=== PATIENT | male | born 1945 | race African-American/Black ===

== ENCOUNTER 2016-10-19 12:57 | Emergency (ER) | payer OTHER ==
[~2016-10-19] VITALS: Ht 170.2 cm; Wt 86.2 kg
[2016-10-19 13:09] LABS: HCO3 ABG 17 mmol/L (21-28); PCO2 ABG 34 mmHg (35-46); PH ABG 7.32 (7.35-7.45); PO2 ABG 80 mmHg (65-108); SAT O2 ABG 94 % (92-99)
--- NOTE | 2016-10-19 13:09 | PHYS DOC ---
Adult General Chief Complaint Chief Complaint: SEIZURE HPI HPI Patient is a 71 year old M who presents with new onset seizure. Patient has known lung cancer stage III and is currently undergoing treatment. Family called because he started having a seizure with no known history of seizures. EMS gave 10 mg of medazepam which stopped the seizure. Patient is post ictal in the emergency room on nonrebreather. Patient has no signs of trauma. No family is bedside. Review of Systems Review of Systems Unable to obtain review of systems secondary to patient's critical condition Current Medications Current Medications Current Medications Medications (Trade) Dose Ordered Sig/Yadi Start Time Stop Time Status Last Admin Dose Admin Propofol 50 ml @ As Directed STK-MED ONCE 10/19/16 13:58 10/19/16 13:59 DC Allergies Allergies Allergies Coded Allergies Type Severity Reaction Last Updated Verified No Known Drug Allergies 10/19/16 No Physical Exam Physical Exam GEN.: Unresponsive, GCS of 8 HEENT: Head is normocephalic, atraumatic NECK: Supple. LUNGS: CTAB. HEART: RRR, S1, S2 present. Peripheral pulses intact ABDOMEN: Soft, nontender. Positive bowel sounds. EXTREMITIES: Without any cyanosis. NEUROLOGIC: GCS 8 (E=1, V=2, M=5) SKIN: No ulcerations Current Patient Data Vital Signs Vital Signs Date Time Temp Pulse Resp B/P (MAP) Pulse Ox O2 Delivery O2 Flow Rate FiO2 10/19/16 12:57 100.0 118 24 131/84 (100) 100 NonRebreather Mask 15.0 100.0 Lab Values Laboratory Tests Test 10/19/16 13:00 10/19/16 13:05 10/19/16 13:07 White Blood Count 13.8 x10^3/uL (4.0-11.0) H Red Blood Count 4.35 x10^6/uL (4.30-5.70) Hemoglobin 14.2 g/dL (13.0-17.5) Hematocrit 42.2 % (39.0-53.0) Mean Corpuscular Volume 97 fL (79-100) Mean Corpuscular Hemoglobin 33 pg (25-35) Mean Corpuscular Hemoglobin Concent 34 g/dL (31-37) Red Cell Distribution Width 16.0 % (11.5-14.5) H Platelet Count 378 x10^3/uL (140-400) Neutrophils (%) (Auto) 90 % (31-73) H Lymphocytes (%) (Auto) 6 % (24-48) L Monocytes (%) (Auto) 4 % (0-9) Eosinophils (%) (Auto) 0 % (0-3) Basophils (%) (Auto) 1 % (0-3) Neutrophils # (Auto) 12.4 x10^3uL (1.8-7.7) H Lymphocytes # (Auto) 0.8 x10^3/uL (1.0-4.8) L Monocytes # (Auto) 0.6 x10^3/uL (0.0-1.1) Eosinophils # (Auto) 0.0 x10^3/uL (0.0-0.7) Basophils # (Auto) 0.1 x10^3/uL (0.0-0.2) Segmented Neutrophils % 71 % (35-66) H Band Neutrophils % 12 % (0-9) H Lymphocytes % 9 % (24-48) L Monocytes % 8 % (0-10) Toxic Granulation Slight Platelet Estimate Adequate (ADEQUATE) Sodium Level 144 mmol/L (136-145) Potassium Level 3.3 mmol/L (3.5-5.1) L Chloride Level 103 mmol/L (98-107) Carbon Dioxide Level 19 mmol/L (21-32) L Anion Gap 22 (6-14) H Blood Urea Nitrogen 16 mg/dL (8-26) Creatinine 1.6 mg/dL (0.7-1.3) H Estimated GFR (Cockcroft-Gault) 52.1 BUN/Creatinine Ratio 10 (6-20) Glucose Level 201 mg/dL (70-99) H Glucose (Fingerstick) 190 mg/dL (70-99) H Lactic Acid Level 9.8 mmol/L (0.4-2.0) *H Calcium Level 9.0 mg/dL (8.5-10.1) Total Bilirubin 0.5 mg/dL (0.2-1.0) Aspartate Amino Transferase (AST) 23 U/L (15-37) Alanine Aminotransferase (ALT) 25 U/L (16-63) Alkaline Phosphatase 67 U/L (46-116) Troponin I Quantitative 0.188 ng/mL (0.000-0.055) Total Protein 7.8 g/dL (6.4-8.2) Albumin 4.2 g/dL (3.4-5.0) Albumin/Globulin Ratio 1.2 (1.0-1.7) O2 Saturation 94 % (92-99) Arterial Blood pH 7.32 (7.35-7.45) L Arterial Blood pCO2 at Patient Temp 34 mmHg (35-46) L Arterial Blood pO2 at Patient Temp 80 mmHg (65-108) Arterial Blood HCO3 17 mmol/L (21-28) L Arterial Blood Base Excess -8 mmol/L (-3-3) L FiO2 100 Urine Collection Type Unknown Urine Color Yellow Urine Clarity Clear Urine pH 5.5 Urine Specific [place] 1.015 Urine Protein 100 mg/dL (NEG-TRACE) Urine Glucose (UA) 100 mg/dL (NEG) Urine Ketones (Stick) Negative mg/dL (NEG) Urine Blood Moderate (NEG) Urine Nitrite Negative (NEG) Urine Bilirubin Negative (NEG) Urine Urobilinogen Dipstick 0.2 mg/dL (0.2 mg/dL) Urine Leukocyte Esterase Negative (NEG) Urine RBC 1-2 /HPF (0-2) Urine WBC 0 /HPF (0-4) Urine Squamous Epithelial Cells Mod /LPF Urine Transitional Epithelial Cells Occ /LPF Urine Bacteria 0 /HPF (0-FEW) Urine Hyaline Casts Few /HPF Urine Mucus Mod /LPF Laboratory Tests 10/19/16 13:00 Laboratory Tests 10/19/16 13:00 EKG EKG 1308: EKG shows sinus tach rate of 111 no STEMI] Radiology/Procedures Radiology/Procedures CT head: Impression: 1. Small, 0.9 x 0.9, hyperdense structure in the left frontotemporal lobe with marked adjacent vasogenic edema which results in left cerebral convexity sulcal effacement and left to right midline shift measuring 6 mm. Given the extensive vasogenic edema, there is high concern for primary metastatic disease patient's known lung carcinoma. 2. Additional patchy nonspecific white matter disease may be related to chronic small vessel ischemic disease. If further evaluation is clinically indicated, MRI brain with contrast can be obtained. These results were discussed with Dr. Jo of the emergency service by telephone at 1:45 PM 10/19/[address] Heriberto Geiger. CXR: Fullness of right pulmonary hilum. Findings may represent adenopathy or central right hilar malignancy Indication: Respiratory failure Consent: Unable to give consent due to emergent nature. Medications Used: see nursing note Procedure: The patient was placed in the appropriate position. Intubation was performed cords were visualized size 8.0 endotracheal tube. ET tube was secured by respiratory therapist.. Initial confirmation of placement included bilateral breath sounds, tube fogging, adequate chest rise, adequate pulse oximetry reading. A chest x-ray to verify correct placement of the tube showed appropriate tube position. The patient tolerated the procedure well. Complications: none. Course & Med Decision Making Course & Med Decision Making Pertinent Labs and Imaging studies reviewed. (See chart for details) ED course: Patient was seen and examined upon arrival emergency room sepsis workup was ordered along with a CT scan of the head 1345: CT report called back to the ER 1350: Discussed CT findings with the and daughter, discuss CODE STATUS at this time patient a full code. Family would like the patient intubated and transferred to where his oncologist and his care has been. 1400: Patient was intubated 1407: Discussed CC/HP/PMH with transfer center will call back 1410: Discussed CC/HP/PMH with transfer center and Dr. Rodrigues will accept and recommends admit 1415: Plan discussed with family. 1420: I do not believe the patient is septic despite the lactic acid of 9 and believe the elevated lactic acid is secondary to the patient's seizure that lasted approximately 20 minutes. At this time I do not see any signs of an active infection warranting antibiotics. Critical care time was 35 minutes exclusive of procedures.[] [] Dragon Disclaimer Dragon Disclaimer This electronic medical record was generated, in whole or in part, using a voice recognition dictation system. Departure Departure Impression: Primary Impression: Metastatic cancer to brain Additional Impressions: Seizure Lung cancer Coma Disposition: TRANSFER [facility] ( Dr. Rodrigues accepting) Condition: GUARDED Problem Qualifiers SAUL JO DO Oct 19, 2016 13:09
[2016-10-19 13:11] LABS: FIO2 ABG 100
[2016-10-19 13:17] LABS: BASO # 0.1 x10^3/uL (0.0-0.2); BASO % 1 % (0-3); EOS % 0 % (0-3); HEMATOCRIT 42.2 % (39.0-53.0); HEMOGLOBIN 14.2 g/dL (13.0-17.5); LYMPH # 0.8 x10^3/uL (1.0-4.8); LYMPH % 6 % (24-48); MEAN CORPUSCULAR HEMOGLOBIN 33 pg (25-35); MEAN CORPUSCULAR HGB CONC 34 g/dL (31-37); MEAN CORPUSCULAR VOLUME 97 fL (79-100); MONO % 4 % (0-9); NEUT % 90 % (31-73); PLATELET COUNT 378 x10^3/uL (140-400); RED BLOOD COUNT 4.35 x10^6/uL (4.30-5.70); WHITE BLOOD COUNT 13.8 x10^3/uL (4.0-11.0)
[2016-10-19 13:21] LABS: BILIRUBIN,URINE NEGATIVE (NEG); GLUCOSE,URINE 100 mg/dL (NEG); NITRITE,URINE NEGATIVE (NEG); PH,URINE 5.5; PROTEIN,URINE 100 mg/dL (NEG-TRACE); UROBILINOGEN,URINE 0.2 mg/dL (0.2 mg/dL)
--- NOTE | 2016-10-19 13:23 | EKG ---
[facility] [address] [place] [address] Test Date: 2016-10-19 Test Time: 13:08:21 Pat Name: ALENA VARGAS Department: Room: Gender: M Sales Support Technician: : 1945 Requested By: SAUL JO Order Number: [id number] Reading MD: Raul Rhodes Measurements Intervals Petroleum Rate: 111 P: -87 OR: 140 QRS: -66 QRSD: 86 T: 65 QT: 344 QTc: 471 Interpretive Statements SINUS TACHYCARDIA LAFB RBBB Electronically Signed On 10-20-2016 12:03:57 CDT by Raul Rhodes
[2016-10-19 13:26] LABS: CREATININE 1.6 mg/dL (0.7-1.3); GFR 52.1; POTASSIUM 3.3 mmol/L (3.5-5.1)
[2016-10-19 13:31] LABS: ALBUMIN 4.2 g/dL (3.4-5.0); ALBUMIN/GLOBULIN RATIO 1.2 (1.0-1.7); TOTAL BILIRUBIN 0.5 mg/dL (0.2-1.0); TOTAL PROTEIN 7.8 g/dL (6.4-8.2)
[2016-10-19 13:44] LABS: BACTERIA,URINE 0 /HPF (0-FEW); WBC,URINE 0 /HPF (0-4)
[2016-10-19 13:45] LABS: SQUAMOUS EPITHELIAL CELL,UR MOD /LPF
--- NOTE | 2016-10-19 13:49 | RAD ---
CT head without contrast 10/19/2016 Clinical indication: Seizure. Comparison: None. Technique: Multiple CT images of the head were obtained without contrast according to standard protocol. PQRS Compliance Statement: One or more of the following individualized dose reduction techniques were utilized for this examination: 1. Automated exposure control 2. Adjustment of the mA and/or kV according to patient size 3. Use of iterative reconstruction technique Findings: Head: There is a 0.9 x 0.9 hyperdense structure in the left frontotemporal lobe with extensive adjacent white matter low-attenuation with mass effect on the adjacent cerebral sulci and 6 mm of left to right midline shift edema which extends throughout the posterior aspect of the left frontal lobe and the majority of the left temporal lobe and somewhat into the left parietal and left occipital lobes. There is partial effacement of the left lateral ventricle. There is additional bilateral supratentorial patchy hemispheric white matter low attenuation. No extra axial acute blood products. Mastoid air cells and visualized paranasal sinuses are well aerated. Calvarium is intact. Impression: 1. Small, 0.9 x 0.9, hyperdense structure in the left frontotemporal lobe with marked adjacent vasogenic edema which results in left cerebral convexity sulcal effacement and left to right midline shift measuring 6 mm. Given the extensive vasogenic edema, there is high concern for primary metastatic disease patient's known lung carcinoma. 2. Additional patchy nonspecific white matter disease may be related to chronic small vessel ischemic disease. If further evaluation is clinically indicated, MRI brain with contrast can be obtained. These results were discussed with Dr. Chavez of the emergency service by telephone at 1:45 PM 10/19/[address] Heriberto Geiger.
[2016-10-19] MEDS ORDERED: PROPOFOL 50 ML IV ONE (13:58)
[2016-10-19 14:06] LABS: PLT ESTIMATE ADEQUATE (ADEQUATE); TOXIC GRANULATION SLIGHT
--- NOTE | 2016-10-19 14:34 | RAD ---
AP chest radiograph 10/19/2016 Clinical indication: Post seizure. Comparison: October 21, 2006 chest radiograph. Findings: There is elevation of the right hemidiaphragm in fullness of the right pulmonary nancy. Cardiac silhouette is within normal limits. No definite pleural effusion, pneumothorax. Impression: Elevation of the right hemidiaphragm with fullness of the right pulmonary nancy. Finding may represent adenopathy or central right hilar malignancy. If clinically indicated, contrast-enhanced CT chest could be obtained for further characterization.
[2016-10-19 14:45] VITALS: BP 178/104
[2016-10-19] MEDS ORDERED: ETOMIDATE 20 MG/10 ML VIAL. IV ONE (15:08)
[2016-10-19] MEDS ORDERED: ROCURONIUM 50 MG/5 ML VIAL. ONE (15:09)
--- NOTE | 2016-10-19 15:34 | RAD ---
AP chest radiograph 10/19/2016 Clinical indication: Postintubation. Comparison: Chest 10/19/2016 from approximately 1.5 hours prior. Findings: Interval placement of an endotracheal tube well below the level of the erika. Position of a transesophageal gastric tube coursing below the level of the hemidiaphragms with the distal tip not visualized. Unchanged elevation of the right hemidiaphragm. Persistent fullness of the right pulmonary nancy. No pneumothorax or pleural effusion. Impression: 1. Placement of endotracheal and gastric tubes, as detailed. 2. Unchanged elevation of the right hemidiaphragm and fullness of the right pulmonary nancy which again may represent adenopathy or central hilar mass.
== END 2016-10-19 15:02 | disposition short-term general hospital (02) ==
LOC: ER 12:57
DX: R56.9 Unspecified convulsions (principal); C79.31 Secondary malignant neoplasm of brain; C34.90 Malignant neoplasm of unspecified part of unspecified bronchus or lung; R40.20 Unspecified coma
CPT/HCPCS: 31500; 36415; 36600; 70450; 71010; 80053; 81001; 82805; 82962; 83605; 84484; 85007; 85025; 87040; 93005; 94002; 99291-25